=== PATIENT | male | born 1965 | race Caucasian/White ===

== ENCOUNTER 2020-09-26 21:00 | Observation (INO) ==
[2020-09-26] MEDS ORDERED: ONDANSETRON 4 MG/2 ML VIAL IV PRN (21:29)
[2020-09-26] MEDS ORDERED: HYDROmorphone 2 MG/1 ML VIAL IV PRN (21:29)
[2020-09-26] MEDS: DEXTROSE 5% NACL 0.45% 1,000 ML IV SCH (21:39)
[2020-09-27 04:36] LABS: Basophils % 0.2 % (0.0-0.8); Eosinophils % 0.2 % (0.00-10.9); Hematocrit 43.2 VOL% (42.0-52.0); Hemoglobin 14.5 GM/DL (14.0-18.0); Immature Granulocytes % 0.2 %; Immature Granulocytes Absolute 0.02 #; Lymphocytes # 1.8 10*3/uL (1.4-4.0); Lymphocytes % 21.3 % (21.2-54.2); Mean Corpuscular HGB Conc 33.6 GM/DL (32-36); Mean Corpuscular Volume 100.5 FL (87-102); Mean Platelet Volume 10.2 FL (9.6-12.0); Monocytes % 9.3 % (1.7-12.7); Neutrophils % 68.8 % (38.7-73.9); Platelet Count 187 T/CUMM (130-400); Red Cell Distribution Width 13.3 % (9.3-17.3); White Blood Count 8.6 T/CUMM (4-12)
[2020-09-27 05:00] LABS: Albumin 3.3 G/DL (3.4-5.0); Bilirubin,Total 0.7 MG/DL (0.2-1.0); Calcium 7.7 MG/DL (8.5-10.1); Osmolality,Calculated 276.5 MOS/KG (273-304); Potassium 4.3 MMOL/L (3.5-5.1); Total Protein 6.1 G/DL (6.4-8.2)
[2020-09-27] MEDS: DEXTROSE 5% NACL 0.45% 1,000 ML IV SCH (06:29)
[2020-09-27 08:03] VITALS: BP 161/96
[2020-09-27] MEDS ORDERED: PANTOPRAZOLE 40 MG TABLET PO SCH (09:00)
== END 2020-09-27 10:15 | disposition home or self-care (01) ==
LOC: N.ED 21:00 → N.EDINP 21:00 → EDUNIT# 21:00 → EDBD 21:00 → N.EDINP 22:28 → N.CC 22:38
PROVIDERS: ADMIT Surgery; ATTEND Surgery